=== PATIENT | female | born 1985 | race Native Hawaiian/Other Pacific Islander ===

== ENCOUNTER 2020-11-11 11:52 | Emergency (ER) | payer OTHER ==
[~2020-11-11] VITALS: Ht 162.6 cm; Wt 108.9 kg
[2020-11-11 14:11] LABS: POTASSIUM 4.1 mmol/L (3.6-5.2); SODIUM 137 mmol/L (136-145)
[2020-11-11 14:18] LABS: PLATELET COUNT 168 K/uL (152-353)
[2020-11-11 16:30] VITALS: BP 154/90; TEMP 98.1
== END 2020-11-11 16:30 | disposition home or self-care (01) ==
LOC: ED 11:52
PROVIDERS: Emergency Medicine Emergency Medical Services
DX: K52.9 Noninfective gastroenteritis and colitis, unspecified (principal); U07.1 COVID-19; J12.82 Pneumonia due to coronavirus disease 2019
CPT/HCPCS: 80053; 84484; 85027; 93005; 96360; 96361; 96365; 96375; 99284; J0696; J1885; J2405; J3490

== ENCOUNTER 2020-11-16 12:18 | Emergency (ER) | payer OTHER ==
[~2020-11-16] VITALS: Ht 162.6 cm; Wt 108.9 kg
[2020-11-16 13:21] LABS: PLATELET COUNT 279 K/uL (152-353)
[2020-11-16 13:49] LABS: POTASSIUM 4.1 mmol/L (3.6-5.2)
[2020-11-16 17:15] VITALS: BP 130/81; TEMP 99.1
== END 2020-11-16 17:17 | disposition home or self-care (01) ==
LOC: ED 12:18
PROVIDERS: Emergency Medicine Emergency Medical Services
DX: U07.1 COVID-19 (principal); J12.82 Pneumonia due to coronavirus disease 2019
CPT/HCPCS: 36600; 80053; 82805; 85027; 96360; 96375; 99284; J1100

== ENCOUNTER 2021-04-02 14:05 | Emergency (ER) | payer OTHER ==
[~2021-04-02] VITALS: Ht 162.6 cm; Wt 108.9 kg
[2021-04-02 17:05] VITALS: BP 153/96; TEMP 98.3
== END 2021-04-02 17:05 | disposition home or self-care (01) ==
LOC: ED 14:05
DX: R55 Syncope and collapse (principal); G90.1 Familial dysautonomia [Riley-Day]; F41.8 Other specified anxiety disorders
CPT/HCPCS: 93005; 96372; 99283; J2060

== ENCOUNTER 2021-07-01 19:37 | Emergency (ER) | payer OTHER ==
[~2021-07-01] VITALS: Ht 162.6 cm; Wt 108.9 kg
[2021-07-01 21:10] LABS: PLATELET COUNT 217 K/uL (152-353)
[2021-07-01 21:15] LABS: POTASSIUM 4.4 mmol/L (3.6-5.2)
[2021-07-01 21:33] LABS: PARTIAL THROMBOPLASTIN TIME 24.8 SECONDS (24.5-33.6)
[2021-07-01] MEDS ORDERED: MEDROL DOSEPAK4 MG PO (22:25)
[2021-07-01] MEDS ORDERED: ONDA4TAB3 PO (22:25)
[2021-07-01] MEDS ORDERED: KETO10TA34 PO (22:25)
[2021-07-01 22:35] VITALS: BP 134/81; TEMP 98.3
== END 2021-07-01 22:35 | disposition home or self-care (01) ==
LOC: ED 19:37
PROVIDERS: Hospitalist
DX: S30.1XXA Contusion of abdominal wall, initial encounter (principal); W18.09XA Striking against other object with subsequent fall, initial encounter; Y92.89 Other specified places as the place of occurrence of the external cause
CPT/HCPCS: 80053; 81000; 85027; 85610; 85730; 96365; 96375; 99284; J1170; J1885; J2405; Q9963